=== PATIENT | male | born 1960 | race Hispanic/Latino ===

== ENCOUNTER 2022-09-14 15:38 | Inpatient (IN) | payer OTHER ==
[2022-09-14] VITALS (8 sets, daily range): BP systolic 132; BP diastolic 70; PULSE 85–102; RESP 18–22; TEMP 98.2; O2SAT 95–100
[~2022-09-14] VITALS: Ht 172.7 cm; Wt 86.2 kg
[2022-09-14] MEDS ORDERED: ALBUTEROL/IPRATROPIUM 3 ML NEB NEB ONE (16:15)
[2022-09-14] MEDS ORDERED: LACTATED RINGER'S 1,000 ML IV ONE (16:15)
[2022-09-14 16:20] LABS: BASOPHILS % 0.3 % (0.0-1.0); EOSINOPHILS % 0.2 % (0.0-6.0); HEMOGLOBIN 13.9 g/dL (14.0-18.0); LYMPHOCYTES % 7.6 % (18.0-39.1); MEAN CORPUSCULAR HEMOGLOBIN 28.7 pg (28-32); MEAN CORPUSCULAR HGB CONC 34.8 g/dL (31-35); MEAN CORPUSCULAR VOLUME 82.6 fL (81-99); MONOCYTES # (AUTO) 1.4 (0.2-0.8); MONOCYTES % 10.2 % (4.4-11.3); NEUTROPHILS # (AUTO) 10.9 (2.1-6.9); NEUTROPHILS % 81.2 % (38.7-80.0); PLATELET COUNT 197 x10e3/uL (140-360); RED BLOOD COUNT 4.84 x10e6/uL (4.3-5.7); RED CELL DISTRIBUTION WIDTH 12.7 % (11.7-14.4)
[2022-09-14] MEDS ORDERED: IBUPROFEN 600 MG TAB PO STA (16:22)
[2022-09-14 16:45] LABS: ANION GAP 13.2 mmol/L (8-16); CALCIUM 8.4 mg/dL (8.4-10.2); CREATININE, SERUM 1.12 mg/dL (0.72-1.25); POTASSIUM 3.2 mmol/L (3.5-5.1)
[2022-09-14 18:30] LABS: CLARITY,URINE CLEAR (CLEAR); COLOR,URINE YELLOW (YELLOW); KETONES,URINE NEGATIVE (NEGATIVE); LEUKOCYTE ESTERASE ,URINE NEGATIVE (NEGATIVE); NITRITE,URINE NEGATIVE (NEGATIVE); PROTEIN,URINE DIPSTICK 1+ (NEGATIVE); URINE UROBILINOGEN 1 mg/dL (0.2 - 1)
[2022-09-14] MEDS ORDERED: SODIUM CHLORIDE FLUSH 10 ML SYR INJ PRN (18:30)
[2022-09-14 18:43] LABS: EPITHELIAL CELLS,URINE FEW /LPF; RBC,URINE 0-5 /HPF (0-5); WBC,URINE (MAN) 0-5 /HPF (0-5)
[2022-09-14] MEDS ORDERED: POTASSIUM CHLORIDE 20 MEQ TAB CR PO STA (19:22)
[2022-09-14] MEDS: ALBUTEROL SULF 0.083% NEB SOLN 3 ML NEB NEB SCH ×2 (19:36→22:43)
[2022-09-14] MEDS ORDERED: ZETIA10 MG PO (22:10)
[2022-09-14] MEDS ORDERED: AMLODIPINE BESYL5 MG PO (22:10)
[2022-09-15] VITALS (12 sets, daily range): BP systolic 125–162; BP diastolic 64–74; PULSE 62–112; RESP 18–20; TEMP 98.8–101.8; O2SAT 93–100
[2022-09-15 02:25] LABS: CREATINE KINASE 173 IU/L (30-200)
[2022-09-15] MEDS: ALBUTEROL SULF 0.083% NEB SOLN 3 ML NEB NEB SCH ×6 (02:34→23:00)
[2022-09-15] MEDS: GUAIFENESIN/CODEINE 5 ML LIQD PO PRN ×3 (09:52→22:53)
[2022-09-15] MEDS ORDERED: SODIUM CHLORIDE 0.9% 100 ML ONE (09:54)
[2022-09-15] MEDS ORDERED: CLONIDINE HCL 0.1 MG TAB PO PRN (10:00)
[2022-09-15] MEDS ORDERED: IOPAMIDOL 370 MG/ML 100 ML INFUS..BTL INJ ONE (10:48)
[2022-09-15] MEDS: SODIUM CHLORIDE 0.9% 1000ML 1,000 ML IV SCH ×2 (10:49→22:53)
[2022-09-15 11:22] LABS: CREATINE KINASE MB 1.2 ng/mL (0-5.0)
[2022-09-15] MEDS: ACETAMINOPHEN 325 MG TAB PO PRN (15:56)
[2022-09-15] MEDS: ENOXAPARIN SOD INJ 40 MG/0.4 ML SYR SC SCH (16:36)
[2022-09-15 17:53] LABS: CREATINE KINASE 628 IU/L (30-200)
[2022-09-16] VITALS (15 sets, daily range): BP systolic 113–147; BP diastolic 61–82; PULSE 65–103; RESP 16–20; TEMP 98.4–100.8; O2SAT 93–98
[2022-09-16] MEDS: ALBUTEROL SULF 0.083% NEB SOLN 3 ML NEB NEB SCH ×6 (01:25→23:00)
[2022-09-16] MEDS: GUAIFENESIN/CODEINE 5 ML LIQD PO PRN ×3 (04:43→20:38)
[2022-09-16 06:06] LABS: BASOPHILS # (AUTO) 0.1 (0.0-0.1); BASOPHILS % 0.6 % (0.0-1.0); EOSINOPHILS # (AUTO) 0.2 (0.0-0.4); EOSINOPHILS % 2.8 % (0.0-6.0); HEMATOCRIT 36.7 % (38.2-49.6); HEMOGLOBIN 12.3 g/dL (14.0-18.0); LYMPHOCYTES # (AUTO) 1.3 (1.0-3.2); LYMPHOCYTES % 15.9 % (18.0-39.1); MEAN CORPUSCULAR HEMOGLOBIN 27.9 pg (28-32); MEAN CORPUSCULAR HGB CONC 33.5 g/dL (31-35); MEAN CORPUSCULAR VOLUME 83.2 fL (81-99); MONOCYTES % 13.2 % (4.4-11.3); NEUTROPHILS # (AUTO) 5.3 (2.1-6.9); NEUTROPHILS % 67.1 % (38.7-80.0); PLATELET COUNT 190 x10e3/uL (140-360); RED BLOOD COUNT 4.41 x10e6/uL (4.3-5.7); RED CELL DISTRIBUTION WIDTH 12.6 % (11.7-14.4)
[2022-09-16 06:31] LABS: ALBUMIN 2.7 g/dL (3.5-5.0); ALBUMIN/GLOBULIN RATIO 0.8 (0.8-2.0); ANION GAP 12.1 mmol/L (8-16); CALCIUM 8.4 mg/dL (8.4-10.2); CREATININE, SERUM 0.84 mg/dL (0.72-1.25); MAGNESIUM 2.2 MG/DL (1.3-2.1); POTASSIUM 3.1 mmol/L (3.5-5.1)
[2022-09-16] MEDS: AMLODIPINE BESYLATE 5 MG TAB PO SCH (09:01)
[2022-09-16] MEDS: EZETIMIBE 10 MG TAB PO SCH (09:01)
[2022-09-16] MEDS: SODIUM CHLORIDE 0.9% 1000ML 1,000 ML IV SCH (12:18)
[2022-09-16] MEDS: ENOXAPARIN SOD INJ 40 MG/0.4 ML SYR SC SCH (17:36)
[2022-09-16] MEDS: ACETAMINOPHEN 325 MG TAB PO PRN (20:39)
[2022-09-17] VITALS (14 sets, daily range): BP systolic 113–160; BP diastolic 64–84; PULSE 79–105; RESP 16–20; TEMP 98.1–98.8; O2SAT 92–97
[2022-09-17] MEDS: SODIUM CHLORIDE 0.9% 1000ML 1,000 ML IV SCH ×2 (01:55→16:42)
[2022-09-17] MEDS: ALBUTEROL SULF 0.083% NEB SOLN 3 ML NEB NEB SCH ×6 (02:20→23:00)
[2022-09-17] MEDS: GUAIFENESIN/CODEINE 5 ML LIQD PO PRN (08:37)
[2022-09-17] MEDS: AMLODIPINE BESYLATE 5 MG TAB PO SCH (08:41)
[2022-09-17] MEDS: EZETIMIBE 10 MG TAB PO SCH (08:41)
[2022-09-17] MEDS: ENOXAPARIN SOD INJ 40 MG/0.4 ML SYR SC SCH (16:42)
[2022-09-18] VITALS (10 sets, daily range): BP systolic 120–144; BP diastolic 63–70; PULSE 68–93; RESP 16–18; TEMP 97.6–98.4; O2SAT 88–97
[2022-09-18] MEDS: ALBUTEROL SULF 0.083% NEB SOLN 3 ML NEB NEB SCH ×4 (02:50→14:46)
[2022-09-18 05:36] LABS: BASOPHILS % 0.5 % (0.0-1.0); EOSINOPHILS # (AUTO) 0.4 (0.0-0.4); EOSINOPHILS % 5.3 % (0.0-6.0); HEMATOCRIT 35.3 % (38.2-49.6); HEMOGLOBIN 12.1 g/dL (14.0-18.0); LYMPHOCYTES # (AUTO) 1.4 (1.0-3.2); LYMPHOCYTES % 18.6 % (18.0-39.1); MEAN CORPUSCULAR HEMOGLOBIN 28.4 pg (28-32); MEAN CORPUSCULAR HGB CONC 34.3 g/dL (31-35); MEAN CORPUSCULAR VOLUME 82.9 fL (81-99); MONOCYTES # (AUTO) 0.6 (0.2-0.8); MONOCYTES % 8.4 % (4.4-11.3); NEUTROPHILS # (AUTO) 5.1 (2.1-6.9); NEUTROPHILS % 66.4 % (38.7-80.0); PLATELET COUNT 223 x10e3/uL (140-360); RED BLOOD COUNT 4.26 x10e6/uL (4.3-5.7); RED CELL DISTRIBUTION WIDTH 12.9 % (11.7-14.4)
[2022-09-18 06:31] LABS: CALCIUM 8.4 mg/dL (8.4-10.2); CREATININE, SERUM 0.8 mg/dL (0.72-1.25)
[2022-09-18] MEDS: SODIUM CHLORIDE 0.9% 1000ML 1,000 ML IV SCH (08:38)
[2022-09-18] MEDS: EZETIMIBE 10 MG TAB PO SCH (08:39)
[2022-09-18] MEDS: AMLODIPINE BESYLATE 5 MG TAB PO SCH (08:39)
[2022-09-18] MEDS ORDERED: AZITHROMYCIN 250 MG TAB PO SCH (09:00)
[2022-09-18] MEDS ORDERED: POTASSIUM CHLORIDE 20 MEQ TAB CR PO ONE (15:45)
== END 2022-09-18 16:23 | disposition home or self-care (01) | DRG 194 ==
LOC: ER 15:42 → ERHOLD 18:30 → MED/SURG3 20:43 → OBSVTOIN 09-16 15:11
PROVIDERS: ADMIT Family Medicine; ATTEND Family Medicine
DX: J18.9 Pneumonia, unspecified organism (principal); E87.20 Acidosis, unspecified; R09.02 Hypoxemia; I10 Essential (primary) hypertension; E78.5 Hyperlipidemia, unspecified
CPT/HCPCS: 36415; 71046; 71260; 80048; 80053; 81001; 82550; 82553; 83518; 83605; 83735; 84484; 85025; 87040; 87070; 87086; 87400; 93005; 94640; 94760; 94799; 99284; G0378; J0696; J1650; J7030; J7050; Q9967